=== PATIENT | female | born 1985 | race Two or more races ===

== ENCOUNTER 2021-08-16 09:07 | Outpatient (CLI) | payer OTHER | END 2021-08-16 09:20 | disposition home or self-care (01) | LOC: RX STUDY 09:07 | PROVIDERS: ATTEND Obstetrics & Gynecology Reproductive Endocrinology | DX: N91.2 Amenorrhea, unspecified (principal); N93.9 Abnormal uterine and vaginal bleeding, unspecified; Q50.6 Other congenital malformations of fallopian tube and broad ligament ==